=== PATIENT | male | born 1950 | race Caucasian/White ===

== ENCOUNTER → 2018-02-15 | Outpatient (CLI) | payer MEDICARE, OTHER ==
[2005-12-22 08:55] VITALS: TEMP 98.2
== END ==
LOC: COL.RAD 07:24
DX: I25.10 Atherosclerotic heart disease of native coronary artery without angina pectoris (principal)

== ENCOUNTER → 2019-03-05 | Outpatient (CLI) | payer MEDICARE, OTHER ==
[2005-12-22 08:55] VITALS: TEMP 98.2
[2019-03-05 10:26] LABS: CREATININE, serum 0.8 (0.66-1.25)
== END ==
LOC: COL.LAB 09:58
DX: D43.2 Neoplasm of uncertain behavior of brain, unspecified (principal)

== ENCOUNTER 2021-01-12 12:00 | Day surgery (SDC) | payer MEDICARE, OTHER ==
[~2021-01-12] VITALS: Ht 170.2 cm; Wt 90.4 kg
[2021-01-12] VITALS (8 sets, daily range): BP systolic 124–135; BP diastolic 49–68; PULSE 46–96; TEMP 97.5–98.7
[2021-01-12] MEDS ORDERED: ASPIRIN 32325 MG/TAB PO (13:44)
[2021-01-12] MEDS ORDERED: LANTUS SOLOS100 U/ML SQ (13:44)
[2021-01-12] MEDS ORDERED: TENORMIN100 MG PO (13:44)
[2021-01-12] MEDS ORDERED: LIPITOR 40MG TA40 MG PO (13:45)
[2021-01-12] MEDS ORDERED: GLUCOTROL 5M5 MG/TAB PO (13:45)
[2021-01-12] MEDS ORDERED: ZESTRIL 5MG5 MG PO (13:46)
[2021-01-12] MEDS ORDERED: HYTRIN 5MG C5 MG/CAP PO (13:46)
[2021-01-12] MEDS ORDERED: ONE-A-DAY ESSE1 EACH PO (13:47)
[2021-01-12] MEDS ORDERED: HCTZ 25MG TAB25 MG PO (13:47)
--- NOTE | 2021-01-12 18:30 | NUR ---
Patient arrived to the floor about at 1655. Denies pain. Had some N/V, zofran given. He asked about getting food ordered, asked if he was ready it for it now after zofran given, he said no. Urine is light pink almost clear, slowed CBI to slow. Explained to call if he feels like his bladder is filling up. His was here but went home for the evening. No other changes at this time. Call light within reach.
--- NOTE | 2021-01-12 21:00 | NUR ---
Pt. sitting up in bed. Pt. is A&OX3, assessment complete. INT to lt. hand patent. Bean cathter with CBI running slow at this time. Urine is pink and clear at this time. Pt. denies further needs, call light within reach.
[2021-01-13 03:40] VITALS: BP 135/49; PULSE 72; TEMP 98.5
--- NOTE | 2021-01-13 07:38 | NUR ---
Assessment completed, alert/oriented, vital signs stable, denies significant pain or discomfort other than from his 3-way segovia cath, CBI still going/ output is pink and clear, in this morning and order for prime and pull of catherter/ if patient doing ok later we can discharge, blood sugars controlled / I have ordered his breafkfast, and prime and pulled his catheter, will continue to monitor
[2021-01-13 07:44] VITALS: BP 136/66; PULSE 85; TEMP 98.1
--- NOTE | 2021-01-13 09:25 | NUR ---
Initial visit; Patient thanked [employer] for looking in on him and keeping him in [employer] prayers.
--- NOTE | 2021-01-13 10:10 | NUR ---
SW met with the patient to discuss discharge plan. The patient lives in [place] with his , Stanton ([phone]). He reports independence with ADLs and has a walker available, if needed. The patient's PCP is Dr. Victor Manuel Guido and he receives his medications from [facility]. The patient does not have a DPOA-HC in EMR, but he states that he does have one completed and that it designates his . The patient plans to return home with his upon discharge. No additional needs at this time. *Discharge plan: home with *
[2021-01-13 11:29] VITALS: BP 150/53; PULSE 72; TEMP 98.4
--- NOTE | 2021-01-13 15:22 | NUR ---
Discharge instructions/ orders reviewed with patient, instructed to follow up with as scheduled, instructed to continue home meds/ no new meds or med changes made, expalined that some bloody urine is normal and instructed him to push water/fluids, may resume normal activity but to not over exert for a couple weeks or untill follow up and clearence from urology at that time, IV removed, he is ambulatory and [employer] escorted him out
== END 2021-01-13 15:34 | disposition home or self-care (01) ==
LOC: SDCO 12:00 → SURG 16:47 → SDCO 01-13 15:34
DX: N40.1 Benign prostatic hyperplasia with lower urinary tract symptoms (principal); N21.0 Calculus in bladder; N13.8 Other obstructive and reflux uropathy; R31.1 Benign essential microscopic hematuria; I11.9 Hypertensive heart disease without heart failure; I25.10 Atherosclerotic heart disease of native coronary artery without angina pectoris; I25.2 Old myocardial infarction; E78.00 Pure hypercholesterolemia, unspecified; E11.9 Type 2 diabetes mellitus without complications; K76.0 Fatty (change of) liver, not elsewhere classified; Z87.891 Personal history of nicotine dependence; Z20.822 Contact with and (suspected) exposure to COVID-19; Z79.899 Other long term (current) drug therapy; Z79.82 Long term (current) use of aspirin; Z79.4 Long term (current) use of insulin
CPT/HCPCS: OP; J0690; J2250; J2405; J2704; J7042; J7120

== ENCOUNTER → 2022-05-30 | Outpatient (CLI) | payer MEDICARE, OTHER ==
[~2022-05-30] MED LIST: ASPIRIN 32325 MG/TAB PO; GLUCOTROL 5M5 MG/TAB PO; HCTZ 25MG TAB25 MG PO; HYTRIN 5MG C5 MG/CAP PO; LANTUS SOLOS100 U/ML SQ; LIPITOR 40MG TA40 MG PO; ONE-A-DAY ESSE1 EACH PO; TENORMIN100 MG PO; ZESTRIL 5MG5 MG PO
== END ==
LOC: MHCPAIN 08:06
DX: M47.896 Other spondylosis, lumbar region (principal); M54.16 Radiculopathy, lumbar region; M96.1 Postlaminectomy syndrome, not elsewhere classified; E11.9 Type 2 diabetes mellitus without complications; Z79.4 Long term (current) use of insulin; I10 Essential (primary) hypertension
CPT/HCPCS: G0463

== ENCOUNTER → 2022-06-26 | Outpatient (CLI) | payer MEDICARE, OTHER | LOC: MHCPAIN 13:13 | DX: M47.817 Spondylosis without myelopathy or radiculopathy, lumbosacral region (principal); M54.16 Radiculopathy, lumbar region | CPT/HCPCS: J1100; Q9967 ==

== ENCOUNTER → 2022-07-11 | Outpatient (CLI) | payer MEDICARE, OTHER | LOC: MHCPAIN 08:43 | DX: M47.896 Other spondylosis, lumbar region (principal); M51.26 Other intervertebral disc displacement, lumbar region; M54.16 Radiculopathy, lumbar region; M96.1 Postlaminectomy syndrome, not elsewhere classified | CPT/HCPCS: G0463 ==

== ENCOUNTER → 2023-02-13 | Outpatient (CLI) | payer MEDICARE, OTHER | LOC: MHCPAIN 12:56 | DX: M96.1 Postlaminectomy syndrome, not elsewhere classified (principal); M48.062 Spinal stenosis, lumbar region with neurogenic claudication; M47.896 Other spondylosis, lumbar region; E11.9 Type 2 diabetes mellitus without complications; Z79.4 Long term (current) use of insulin; I10 Essential (primary) hypertension | CPT/HCPCS: G0463 ==

== ENCOUNTER → 2023-04-25 | Outpatient (CLI) | payer MEDICARE, OTHER | LOC: COL.RAD 12:07 | DX: D43.2 Neoplasm of uncertain behavior of brain, unspecified (principal) ==